=== PATIENT | male | born 1970 | race Hispanic/Latino ===

== ENCOUNTER 2019-07-30 16:41 | Inpatient (IN) | payer BC ==
[~2019-07-30 16:41] MED LIST: Dexamethasone 20 MG/5 ML VIAL ONE; EPHEDRINE 25 MG/5 ML SYRINGE ONE; Lidocaine 1% PF 5 ML VIAL ONE; Ondansetron PF 4 MG/2 ML Vial ONE; PHENYLEPHRINE-NS 100 MCG/ML 10 ML SYRINGE ONE; PROPOFOL 200 MG/20 ML VIAL ONE; Rocuronium Bromide 10 MG/ML (10ML VIAL) ONE
[2019-07-30 17:18] LABS: #Basophils 0.1 thou/uL (0.0-0.2); #Eosinphils 0.3 thou/uL (0.0-0.7); #Lymphocytes 2.3 thou/uL (1.20-3.40); #Monocytes 0.8 thou/uL (0.11-0.59); #Neutrophils 6.9 thou/uL (1.40-6.50); %Basophils 0.8 % (0.0-1.0); %Eosinophils 2.8 % (0.0-10.0); %Monocytes 7.9 % (0.0-10.0); %Neutrophils 66.5 % (42.0-75.0); Mean Corpuscular HGB CONC 35.9 g/dL (32.0-36.0); Mean Corpuscular Hemoglobin 33.8 pg (27.0-31.0); Mean Corpuscular Volume 94.1 fL (78.0-98.0); Mean Platelet Volume 7.7 fL (7.4-10.4); Platelet Count 190 thou/uL (130-400); RBC Distribution Width 11.7 % (11.5-14.5); Red Blood Cell (RBC) Count 4.72 mill/uL (4.70-6.10); White Blood Cell (WBC) Count 10.4 thou/uL (4.8-10.8)
--- NOTE | 2019-07-30 17:32 | CT ---
CT Brain WO Con: 07/30/2019 5:04 PM CLINICAL HISTORY: Altered mental status with slurred speech and right hand numbness that has since re solved. IMAGING TECHNIQUE: Multiple CT images were obtained of the brain without IV contrast. COMPARISON: None. FINDINGS: Brain: There is a large mixed density subdural hematoma overlying the left frontal and parietal conv exity measuring up to 32 mm on image 22 of series 2. There is left to right midline shift of 5.9 mm. There is a small mixed density subdural hematoma overlying the anterior right frontal convexity o n image 12 series 2 measuring 6 mm. No hydrocephalus is evident. Ventricles: Normal. No hydrocephalus. Skull: Intact. Visualized Paranasal sinuses: There is an air-fluid level in left maxillary sinus. Mastoid air cells:Clear. Extracranial soft tissues:Normal. IMPRESSION: 1 Bilateral mixed density subdural hematomas with [id number] midline shift of 5.9 mm. Recommend co rrelation for anticoagulation or possibly remote trauma. Recommend neurosurgical consultation. Findings called to Dr. Zarate at 5:25 PM on July 30, 2019. 2. Acute left maxillary sinusitis
[2019-07-30 17:38] LABS: ALT (SGPT) 23 U/L (8-55); AST (SGOT) 16 U/L (5-34); Albumin 4.4 g/dL (3.5-5.0); Alkaline Phosphatase 66 U/L (40-110); Anion Gap 13 mmol/L (10-20); BUN (Urea Nitrogen) 10 mg/dL (8.9-20.6); Bilirubin, Total 1.1 mg/dL (0.2-1.2); Calc. Creatinine Clearance 0 mL/min (70-130); Calcium 9.1 mg/dL (7.8-10.44); Carbon Dioxide 28 mmol/L (22-29); Chloride 103 mmol/L (98-107); Estimated GFR-MDRD Greater than 90; Globulin 3.5 g/dL (2.4-3.5); Glucose 102 mg/dL (70-105); Potassium 3.7 mmol/L (3.5-5.1); Protein, Total 7.9 g/dL (6.0-8.3); Sodium 140 mmol/L (136-145)
[2019-07-30 17:59] LABS: Bilirubin Negative (Negative); Blood, Urine Negative (Negative); Clarity Clear (Clear); Glucose, Urine (Dipstick) Normal (Negative); Leukocyte Negative Leu/uL (Negative); Nitrite Negative (Negative); Protein, Urine (Dipstick) Negative (Neg-Trace); Urobilinogen Normal mg/dL (Less than 2)
[2019-07-30] MEDS ORDERED: Fentanyl 100 MCG/2 ML VIAL ONE ×2 (18:01→19:41)
[2019-07-30 18:02] LABS: INR-International Normal Ratio 0.9; PTT 31.5 SEC (22.9-36.1)
[2019-07-30] MEDS ORDERED: Bacitracin Zinc Ointment 30 gm TUBE ONE (18:04)
[2019-07-30] MEDS ORDERED: Lidocaine 1% w/Epinephrine 1:100K 20 ML VIAL ONE (18:04)
[2019-07-30] MEDS ORDERED: Thrombin 5000 UNITS/5 ML VIAL ONE (18:04)
[2019-07-30] MEDS ORDERED: Lidocaine 0.5%/Epinephrine 1:200,000 50 ml Vial ONE (18:05)
[2019-07-30 18:09] LABS: Amphetamine Not Detected (NotDetected); Barbiturates Screen Not Detected (NotDetected); Benzodiazepine Screen Not Detected (NotDetected); Cocaine Metabolite Screen Not Detected (NotDetected); Medtox Control Line Valid? VALID (VALID); Medtox Reader # READER 4; Methadone Not Detected (NotDetected); Methamphetamine Not Detected (NotDetected); Opiate Screen Not Detected (NotDetected); Oxycodone Screen Not Detected (NotDetected); Phencyclidine (PCP) Not Detected (NotDetected); THC/Cannabinoid Screen Not Detected (NotDetected); Tricyclic Screen Not Detected (NotDetected)
--- NOTE | 2019-07-30 18:17 | RAD ---
PORTABLE CHEST: 07/30/19 PROVIDED CLINICAL HISTORY: Altered mental status. Cardiac and mediastinal silhouette is within normal limits. No focal consolidation, pleural fluid or pneumothorax apparent. IMPRESSION: No evidence for an acute cardiopulmonary process. POS: LUCERO
[2019-07-30] MEDS ORDERED: SUGAMMADEX SODIUM 500 MG/5 ML VIAL ONE (19:00)
[2019-07-30] MEDS ORDERED: Ondansetron PF 4 MG/2 ML Vial IVP PRN (19:30)
[2019-07-30] MEDS ORDERED: Labetalol HCl 100 MG/20 ML VIAL SLOW IVP PRN (19:30)
[2019-07-30] MEDS ORDERED: hydrALAZINE 20 MG/ML VIAL SLOW IVP PRN (19:30)
[2019-07-30] MEDS ORDERED: Docusate 100 MG CAP PO PRN (19:30)
[2019-07-30] MEDS ORDERED: diphenhydrAMINE 50 MG/ML VIAL IVP PRN (19:30)
[2019-07-30] MEDS ORDERED: Sodium Chloride 0.9% 1,000 ML IV SCH (19:30)
[2019-07-30] MEDS ORDERED: Morphine 2 MG/ML SYRINGE SLOW IVP PRN (19:30)
--- NOTE | 2019-07-30 19:30 | PRG ---
DATE OF SERVICE: 07/30/2019 Mr. Allen is a 48-year-old gentleman with history of fall within the last few weeks. He presents with a slurred speech and numbness involving the right upper extremity. He had a CT examination performed, which shows a mixed density subdural hematoma over the left frontoparietal convexity. It is for the most part isodense and represents a subacute hemorrhage. There is an associated midline shift of nearly [address] with Mr. Allen and his family to give him the diagnosis. Reviewed the imaging and the proposed management, which is jo ann hole drainage of the subdurals. Risks, benefits, and alternatives were explained. Informed consent was provided. Job ID: [id number]
[2019-07-30] MEDS ORDERED: Promethazine HCl 25 MG/ML VIAL SLOW IVP PRN (19:38)
[2019-07-30] MEDS ORDERED: Ondansetron HCl/PF 4 MG/2 ML Vial IVP PRN (19:38)
[2019-07-30] MEDS ORDERED: Promethazine HCl 25 MG/ML VIAL IM PRN (19:38)
--- NOTE | 2019-07-30 19:58 | HP ---
HISTORY: Mr. Allen is a very pleasant 48-year-old gentleman, presenting to the emergency department for a major complaint of right-sided facial tingling and some facial droop with mild speech impediment that is new onset today. There is some suggestion of a possible tingling to the right fingers, but this is much less of a concern than his face was. This prompted a CT scan upon presentation to the emergency department that reveals a large, roughly 3.5 cm subdural hematoma of subacute nature to the left, mostly frontal, but frontotemporal convexity with significant compression of the underlying brain parenchyma and roughly 5 to 6 mm of midline shift. For this reason, we are consulted. He does report history of a fall back in May, but that does not seem to correlate particularly well the chronicity of the appearance of the subdural. He cannot recall any other significant trauma. He denies any blood thinning medications or really other medications for that matter at all other than perhaps p.r.n. ibuprofen for pain from [id number]-[id number]-ryse. PAST MEDICAL HISTORY: No significant history. MEDICATIONS: None. ALLERGIES: NO KNOWN DRUG ALLERGIES. PAST SURGICAL HISTORY: None. PHYSICAL EXAMINATION: GENERAL: He is alert and oriented x4. He knows where he is at. He understands the month, the year, his date of , his name, and situation. HEENT: Pupils are equal, round, and reactive to light. Extraocular movements are intact. NEUROLOGIC: Bilateral upper and lower extremity motor exam with 5/5 strength. No obvious sensory disturbance that I can discern. He does have some mild facial drooping on the right as compared to the left, but this is not profound. Speech is fluid and uninhibited. ASSESSMENT: Subacute to chronic subdural hematoma. PLAN: I discussed with the patient and his at bedside that given the large volume nature of his brain and the large volume nature of this hematoma, that the best recommendation would be to evacuate this hemorrhage, particularly given his symptomatic nature. He and his are on board. I consented the patient for left frontal jo ann hole with subdural hematoma evacuation. I explained the risks, benefits, and alternatives. The patient expresses understanding as did the and would like to proceed. I discussed the case with Dr. Bryson who is in agreement with this plan. We will clear for surgery now. Job ID: [id number]
--- NOTE | 2019-07-30 20:03 | OP ---
DATE OF PROCEDURE: 07/30/2019 HOSPITAL MEDICAL ASSISTANT: Mark Mayorga PA-C INDICATION: Prevent neurologic decline. DIAGNOSIS: Large subacute left frontoparietal subdural hematoma with mass effect. PROCEDURES: Left frontal jo ann hole evacuation. ANESTHESIA: General. DESCRIPTION OF PROCEDURE: The patient was brought into the operating room and placed under general anesthesia. He was placed on table in a supine position. A single linear incision was planned over the left frontal bone. This was infiltrated with lidocaine with epinephrine for analgesia and hemostasis purposes. Following a preoperative pause, the incision was created. A self-retaining retractor was placed. A single jo ann hole was placed in the left frontal bone. A small cruciate incision was placed within the dura. After opening the dura, there was immediate egress of mixed density blood under high pressure. This was irrigated until it cleared up. A red rubber tube was then placed in the subdural space and brought out through a separate puncture site. The wound was again irrigated. Hemostasis was maintained throughout. The wound was then closed in anatomic layers and a pressure dressing was applied. There were no known procedural complications. Job ID: [id number]
[2019-07-30] MEDS: CEFAZOLIN 2 GM in Premix Bag 1 BAG IVPB SCH (21:07)
[2019-07-30] MEDS: Famotidine/PF 20 mg/2ml Vial SLOW IVP SCH (21:08)
[2019-07-30 21:13] VITALS: BMI 27.2
[2019-07-31] MEDS: CEFAZOLIN 2 GM in Premix Bag 1 BAG IVPB SCH ×2 (03:06→12:04)
--- NOTE | 2019-07-31 07:53 | PRG ---
DATE OF SERVICE: 07/31/2019 Mr. Allen is postop day #1, following left frontal jo ann hole with subdural evacuation. He is in the ICU. Head of bed is flat and doing quite well. He states he feels much better. The current uncertainty that he have or perhaps minor motor dysfunction in the right upper extremity has resolved. He seems little more focused cognitively than he did yesterday upon presentation. He has had scant output to the drain, but again, his surgery was only last night. We will keep him flat for the time being and perhaps discontinue the drain around lunchtime. He can move to the Stroke Floor at any time. The patient is motivated to get out of the hospital today, if we can get the drain out and then have him participate with Physical Therapy, then perhaps this is a reasonable goal. Job ID: [id number]
[2019-07-31] MEDS: Famotidine/PF 20 mg/2ml Vial SLOW IVP SCH (09:43)
--- NOTE | 2019-07-31 11:42 | PRG ---
DATE OF SERVICE: 07/31/2019 Mr. Allen is now one day status post jo ann hole drainage of a subacute subdural hematoma over the left frontoparietal convexity. He is doing great overnight. Neurologically, he is normal. He reports no pain. I removed the drain this morning as there has been scant output. Our plan will be to mobilize him over the next couple of hours and then if he does well, look at discharging him home as early as this afternoon. Job ID: [id number] [facility]
[2019-07-31 13:50] VITALS: BP 124/73
[2019-07-31 14:12] VITALS: TEMP 98.5
[2019-07-31] MEDS ORDERED: FLU VACC QS2019-20(6MOS UP)/PF 60 MCG/0.5 ML SYRINGE IM ONE (21:00)
[2019-07-31] MEDS ORDERED: Prevnar 13-Val Conj/PF 0.5 ML SYRINGE IM ONE (21:00)
--- NOTE | 2019-08-02 06:18 | PQF ---
PITER TUBBS JAMES BRADLEY MD [id number] CLINICAL DOCUMENTATION CLARIFICATION FORM: POST DISCHARGE Addendum to original discharge summary date: ____ Late entry note date: __ DATE:08/02/2019 ATTN: Edson Green Please exercise your independent, professional judgment in responding to the clarification form. Clinical indicators are provided on the bottom of this form for your review Please check appropriate box(s) to clarify if the following diagnosis has been ruled in or ruled out: Brain Compression [ X ] Ruled in diagnosis [ X ] Continue to treat [ ] Resolved [ ] Ruled out diagnosis [ ] Cannot rule out diagnosis [ ] Other diagnosis [ ] Unable to determine For continuity of documentation, please document condition throughout progress notes and discharge summary. Thank You. CLINICAL INDICATORS - SIGNS / SYMPTOMS / LABS Vital signs 07/29 BP 142/80, pulse 77, Resp 16, Temp 97.3 H&P p1 07/29 Tierra DELUCA Presenting to the ED for Major complaint of right sided facial tingling and some facial droop with mild speech impediment that is new onset today H&P p1 07/29 Tierra DELUCA This prompted a CT scan upon presentation to the emergency department that reveals a large, roughly 3.5 cm subdural hematoma of subacute nature to the left, mostly frontal, but frontotemporal convexity with significant compression of the underlying brain parenchyma and roughly 5 to 6 mm of midline shift. Operative report p1 07/29 Tierra DELUCA Large subacute left frontoparietal subdural hematoma with mass effect RISK FACTORS H&P p1 07/29 Subacute to chronic subdural hematoma H&P p1 07/29 History of fall TREATMENTS MAR 07/29 IV Bridion 500 ng JUL 25 IV Thrombin 5000 units JUL [address] brain ordered 07/29 Evacuation of Hematoma via Flavio Hole by Dr Bryson on 07/29 (This form is maintained as a part of the permanent medical record) 2014 [employer]. All Rights Reserved [email or web address]
--- NOTE | 2019-08-06 14:09 | EKG ---
Test Reason : Blood Pressure : / mmHG Vent. Rate : 075 BPM Atrial Rate : 075 BPM P-R Int : 158 ms QRS Dur : 092 ms QT Int : 390 ms P-R-T Axes : 050 008 030 degrees QTc Int : 435 ms Normal sinus rhythm Normal ECG Confirmed by GERDA SANCHEZ DO ([id number]), senior technical editor CHIOMA MARTIN ([id number]) on 08/06/2019 2:09:31 PM Referred By: Confirmed By:GERDA SANCHEZ DO
== END 2019-07-31 14:12 | disposition home or self-care (01) | DRG 25 ==
LOC: ERS 16:41 → CCU 18:40 → ERS 18:40 → SDC/OP 18:59 → CCU 20:47
PROVIDERS: ADMIT Neurological Surgery; ATTEND Neurological Surgery
PROC: 00C73ZZ Extirpation of Matter from Cerebral Hemisphere, Percutaneous Approach (ICD-10-PCS; principal; 2019-07-30)
DX: I62.02 Nontraumatic subacute subdural hemorrhage (principal); G93.5 Compression of brain; I62.03 Nontraumatic chronic subdural hemorrhage; R29.810 Facial weakness; R20.2 Paresthesia of skin; R40.2362 Coma scale, best motor response, obeys commands, at arrival to emergency department; R40.2142 Coma scale, eyes open, spontaneous, at arrival to emergency department; R40.2252 Coma scale, best verbal response, oriented, at arrival to emergency department
CPT/HCPCS: 36415; 36416; 70450; 71045; 80053; 80306; 81003; 84484; 85025; 85610; 85730; 86850; 86900; 86901; 93005; J0690; J1100; J2001; J2405; J2704; J3010; S0028

== ENCOUNTER 2019-09-08 08:18 | Outpatient (CLI) | payer BC ==
--- NOTE | 2019-09-08 09:04 | CT ---
Exam: Head CT without contrast HISTORY: Traumatic subdural hematoma COMPARISON: 07/30/2019 FINDINGS: Hemorrhage: Interval near complete resolution of her peers identified right extra-axial hematoma. Int erval decrease in size of a left-sided extra-axial hematoma. Along the frontal convexity the hematoma measures 1.1 cm. Mild mass effect upon the left cerebrum. Mild sulcal effacement. No signifi cant midline shift. Basilar cisterns are patent. Brain parenchyma: Cortical aguirre-white matter differentiation is preserved. Ventricular system: Ventricles and sulci are patent and symmetric. Calvarium: Interval left frontal jo ann hole defect. Sinuses and mastoid air cells: Adequate aeration. IMPRESSION: 1. Interval decrease in size of bilateral extra-axial hematomas. There is been surgical evacuation. C ontinued surveillance is recommended.
== END 2019-09-08 08:19 | disposition home or self-care (01) ==
LOC: BICCT 08:18
PROVIDERS: ATTEND Neurological Surgery
DX: S06.5X9A Traumatic subdural hemorrhage with loss of consciousness of unspecified duration, initial encounter (principal)
CPT/HCPCS: 70450

== ENCOUNTER 2024-02-18 05:54 | Day surgery (SDC) | payer BC ==
[2024-02-17 12:42] VITALS: BMI 24.9
[~2024-02-18 05:54] MED LIST changes: -Dexamethasone 20 MG/5 ML VIAL ONE; -EPHEDRINE 25 MG/5 ML SYRINGE ONE; +EPINEPHrine 0.3 MG in Ophthalmic Irrigation Solution 500 ML IRR SCH; -Lidocaine 1% PF 5 ML VIAL ONE; -Ondansetron PF 4 MG/2 ML Vial ONE; -PHENYLEPHRINE-NS 100 MCG/ML 10 ML SYRINGE ONE; -PROPOFOL 200 MG/20 ML VIAL ONE; -Rocuronium Bromide 10 MG/ML (10ML VIAL) ONE
[2024-02-18] MEDS ORDERED: Cyclopentolate 1% Opth Drop 2 ML BOT ONE (06:06)
[2024-02-18] MEDS ORDERED: PHENYLephrine 2.5% Ophth Soln 15 ml Bottle ONE (06:06)
[2024-02-18] MEDS ORDERED: fentaNYL PF 100 MCG/2 ML SYRINGE ONE (06:48)
[2024-02-18] MEDS ORDERED: PROPOFOL 20 ML ONE (06:48)
[2024-02-18] MEDS ORDERED: Midazolam HCl 2 mg/2 ml Vial ONE (06:48)
[2024-02-18] MEDS ORDERED: Lidocaine 4% PF 5 ML AMP ONE (07:05)
[2024-02-18] MEDS ORDERED: Lidocaine 1% PF 5 ML VIAL ONE (07:05)
[2024-02-18] MEDS ORDERED: Bupivacaine 0.75% 10 ML VIAL ONE (07:05)
[2024-02-18] MEDS ORDERED: Maxitrol 0.1% Opth Oint 3.5 GM TUBE ONE (07:05)
[2024-02-18] MEDS ORDERED: Triamcinolone 40 MG/ML VIAL ONE (07:05)
[2024-02-18] MEDS ORDERED: CEFAZOLIN 1 GM VIAL ONE (07:05)
[2024-02-18] MEDS ORDERED: Dexamethasone 4 mg/ml Vial ONE ×2 (07:05→07:27)
== END 2024-02-18 08:08 | disposition home or self-care (01) ==
LOC: SDC 05:54
PROVIDERS: ATTEND Ophthalmology Retina Specialist
PROC: 08T53ZZ Resection of Left Vitreous, Percutaneous Approach (ICD-10-PCS; principal; 2024-02-18)
DX: H43.312 Vitreous membranes and strands, left eye (principal)
CPT/HCPCS: J0171; J0690; J1100; J2250; J2704; J3301; J3490